=== PATIENT | male | born 1990 | race African-American/Black ===

== ENCOUNTER 2017-08-31 21:51 | Emergency (ER) | payer MEDICAID ==
[~2017-08-31] VITALS: Ht 175.3 cm; Wt 88.5 kg
[2017-08-31 21:55] VITALS: BP 127/65
--- NOTE | 2017-08-31 22:02 | NUR ---
PATIENT AMBULATED TO BED 3
--- NOTE | 2017-08-31 22:06 | NUR ---
PATIENT PRESENTS TO ED WITH right hip and knee pain. PT DENIES N/V/D; SKIN IS PINK/WARM/DRY; AAOX4 WITH EVEN AND STEADY GAIT; LUNGS CLEAR BL; HR EVEN AND REGULAR; PT DENIES ANY FEVER, CP, SOB, OR COUGH AT THIS TIME; PATIENT STATES PAIN OF 8/10 AT THIS TIME; VSS; PATIENT POSITIONED FOR COMFORT; HOB ELEVATED; BEDRAILS UP X1; BED DOWN. ER MD MADE AWARE OF PT STATUS.
--- NOTE | 2017-08-31 22:30 | NUR ---
xray to see patient
--- NOTE | 2017-08-31 22:59 | NUR ---
patient back from xray
[2017-08-31 23:17] VITALS: BP 127/65
== END 2017-08-31 23:17 | disposition home or self-care (01) ==
LOC: MED 21:51
DX: S83.91XA Sprain of unspecified site of right knee, initial encounter (principal); S79.911A Unspecified injury of right hip, initial encounter; R03.0 Elevated blood-pressure reading, without diagnosis of hypertension; J45.909 Unspecified asthma, uncomplicated; X58.XXXA Exposure to other specified factors, initial encounter; Y93.89 Activity, other specified; Y92.89 Other specified places as the place of occurrence of the external cause; Y99.8 Other external cause status
CPT/HCPCS: 73502; 73562; 99284

== ENCOUNTER 2018-04-12 19:59 | Emergency (ER) | payer MEDICAID ==
[~2018-04-12] VITALS: Ht 172.7 cm; Wt 77.1 kg
[2018-04-12 20:03] VITALS: BP 119/76
--- NOTE | 2018-04-12 20:06 | NUR ---
PT AMBUALTORY TO ER BRENDA W/ STEADY GAIT IN STABLE CONDITION.
--- NOTE | 2018-04-12 20:35 | NUR ---
PT AMBULATED TO BED 12
--- NOTE | 2018-04-12 20:35 | NUR ---
27/M CAME IN W C/O PRODUCTIVE COUGH, FEVER/CHILLS, NASAL CONGESTION X 1 DAY. LUNG SOUNDS CBTA, 16 RR EVEN AND UNLABORED. AFEBRILE ON ARRIVAL. DENIES PMH
[2018-04-12] MEDS ORDERED: NACL 0.9% 1,000 ML IV SCH (22:24)
[2018-04-12] MEDS ORDERED: ACETAMINOPHEN EXTRA STRENGTH 500 MG TAB PO ONE (22:25)
[2018-04-12] MEDS ORDERED: KETOROLAC 30 MG/ML VIAL IVP ONE (22:25)
[2018-04-12] MEDS ORDERED: cefTRIAXone 1,000 MG VIAL ONE (22:40)
--- NOTE | 2018-04-12 22:44 | NUR ---
MEDS ORDERED, CURENTLY RUNNING. PT CANNOT BE DISCHARGED AT THIS TIME
[2018-04-12 23:00] VITALS: BP 132/80
--- NOTE | 2018-04-12 23:01 | NUR ---
Patient discharged with v/s stable. Written and verbal after care instructions given and explained. Patient alert, oriented and verbalized understanding of instructions. Ambulatory with steady gait. All questions addressed prior to discharge. ID band removed. Patient advised to follow up with PMD. Rx of TYLENOL, MOTRIN, CLINDAMYCIN given. Patient educated on indication of medication including possible reaction and side effects. Opportunity to ask questions provided and answered.
== END 2018-04-12 23:01 | disposition home or self-care (01) ==
LOC: MED 19:59
DX: J02.9 Acute pharyngitis, unspecified (principal); J45.909 Unspecified asthma, uncomplicated; F17.200 Nicotine dependence, unspecified, uncomplicated
CPT/HCPCS: 36415; 87804; 96365; 96375; 99284; J0696; J1885; J7030; J7060